=== PATIENT | female | born 1965 | race Caucasian/White ===

== ENCOUNTER → 2017-06-25 | Outpatient (CLI) | payer OTHER ==
[~2017-06-25] MED LIST: ASPI-1064 PO; CYCL10TA29 PO; IBU600 PO; IBUP-1618 PO; IBUP-1671 PO; IBUP800T37 PO; IMITREX; LOR5 PO; MET800 PO; PER PO; RIZA10 PO; SUMA50TA34 PO
--- NOTE | 2017-06-25 17:18 | EKG ---
FACILITY: [facility] - [place] PATIENT NAME: Kylie ROCHA : [id number] MR: [id number] V: [id number] EXAM DATE: ORDERING PHYSICIAN: MIRELLA FIGUEROA TECHNOLOGIST: MONE Messina Reason : CHEST TIGHTNESS Blood Pressure : / mmHG Vent. Rate : 075 BPM Atrial Rate : 075 BPM P-R Int : 138 ms QRS Dur : 082 ms QT Int : 398 ms P-R-T Axes : 064 -19 044 degrees QTc Int : 444 ms Normal sinus rhythm Possible Left atrial enlargement Borderline ECG No previous ECGs available Referred By: CAROLINA Confirmed By:
== END ==
LOC: RESP 17:07
PROVIDERS: ATTEND Family Medicine
DX: R07.9 Chest pain, unspecified (principal); R94.31 Abnormal electrocardiogram [ECG] [EKG]
CPT/HCPCS: 93005

== ENCOUNTER → 2017-06-28 | Outpatient (CLI) | payer OTHER ==
[~2017-06-28] MED LIST changes: +BARIUM SULFATE 176 GM BTL PO ONE; +BARIUM SULFATE 340 GM POWD ONE
--- NOTE | 2017-06-29 08:49 | RADIOLOGY IMAGING REPORT ---
FACILITY: [facility] PATIENT NAME: Kayden Wilkerson : 1965 MR: [id number] V: [id number] EXAM DATE: ORDERING PHYSICIAN: MIRELLA FIGUEROA TECHNOLOGIST: [place] [facility] [place]den Wilk[place] : 1965 Visit/Account:[id number] Date of Sevice: 06/28/2017 Exam type: UPPER GI SERIES W/O AIR History: Epigastric abdomen pain x2 weeks Comparison: None. Findings: Double contrast upper GI series was performed with thick and thin barium. Moderate gastric esophagea l reflux was observed during the examination. There is mild narrowing seen at the lower esophageal s phincter. No mucosal erosions are identified. No abnormality of the stomach duodenal bulb or duoden al C-loop was seen the fluoroscopy dose area product was 569 micro-Herbert per meter squared IMPRESSION: 1. Moderate gastroesophageal reflux with mild narrowing at the lower esophageal sphincter. Given th is finding endoscopy may be helpful Report Dictated By: Codie Aburto MD at 06/29/2017 8:41 AM Report E-Signed By: Codie Aburto MD at 06/29/2017 8:45 AM WSN:[email or web address]
== END ==
LOC: RAD 02:35
PROVIDERS: ATTEND Family Medicine
DX: K21.9 Gastro-esophageal reflux disease without esophagitis (principal); K22.2 Esophageal obstruction
CPT/HCPCS: 74240

== ENCOUNTER → 2017-08-21 | Outpatient (CLI) | payer OTHER ==
[~2017-08-21] MED LIST changes: -BARIUM SULFATE 176 GM BTL PO ONE; -BARIUM SULFATE 340 GM POWD ONE
--- NOTE | 2017-08-23 15:05 | RADIOLOGY IMAGING REPORT ---
FACILITY: [facility] [place] PATIENT NAME: Kayden ROCHA : [id number] MR: [id number] V: [id number] EXAM DATE: [id number] ORDERING PHYSICIAN: MIRELLA FIGUEROA TECHNOLOGIST: Berenice Vallejo PROCEDURE:BILATERAL DIGITAL SCREENING MAMMOGRAM WITH CAD ASSISTED INTERPRETATION & 3D TOMOSYNTHESIS COMPARISON:Prior mammograms 08/09/16, 07/09/15, 07/02/14, 07/02/13, 06/27/13. INDICATIONS:SCREENING FINDINGS: Moderately heterogeneous fibroglandular tissue is seen throughout the breasts. The parenchymal pattern has remained stable allowing for difference in mammographic technique & patient positioning. There is no evidence of malignant appearing mass, malignant appearing calcifications or other secondary sign of malignancy in either breast. DIAGNOSTIC CATEGORY 2--BENIGN FINDING. RECOMMENDATIONS: ROUTINE MAMMOGRAM AND CLINICAL EVALUATION. IMPRESSION: BIRADS 2: Benign finding No significant abnormality is seen. Dictated by: Codie Aburto M.D. on 08/23/2017 at 13:12 Transcribed by: NICOLE on 08/23/2017 at 13:37 Approved by: Codie Aburto M.D. on 08/23/2017 at 15:04 [facility]
== END ==
LOC: MAMO 02:25
PROVIDERS: ATTEND Family Medicine
DX: Z12.31 Encounter for screening mammogram for malignant neoplasm of breast (principal)
CPT/HCPCS: 77063; 77067

== ENCOUNTER → 2017-10-15 | Outpatient (CLI) | payer OTHER ==
--- NOTE | 2017-10-15 17:18 | RADIOLOGY IMAGING REPORT ---
FACILITY: [facility] PATIENT NAME: Kayden Wilkerson : 1965 MR: [id number] V: [id number] EXAM DATE: ORDERING PHYSICIAN: MIRELLA FIGUEROA TECHNOLOGIST: Location: [facility] Patient: Kayden Wilkerson : 1965 Visit/Account:[id number] Date of Sevice: 10/15/2017 THYROID HISTORY: COMPARISON: Studies dating back to 2006 FINDINGS: SIZE: Normal. Right lobe: 3.9 x 1.4 x 1.4 cm Left lobe: 4.2 x 1.6 x 1.7 cm Isthmus: 3 mm PARENCHYMA: Homogeneous. NODULES: Right lobe: * Reidentified and stable in appearance is a isoechoic solid nodule within the posterior aspect of t he mid lobe there is stable in size measuring 1.4 x 0.9 x 0.7 cm. Previously this measured 1.3 x 0.9 x 0.9 cm. Left lobe: * 5 mm solid isoechoic nodule at the superior pole is unchanged. * 1.2 cm peripherally calcified nodule within the mid lobe is slightly decreased in size when compar ed to prior study. * 1.8 cm peripherally calcified solid nodule within the inferior pole is slightly decreased in size Isthmus: * None discrete. VASCULARITY: Within normal limits. ADDITIONAL FINDINGS: None. IMPRESSION: Stable to minimally decreased bilateral thyroid nodules as described. The 1.8 cm nodule within the i nferior left lobe should be considered for biopsy based on size characteristics. REFERENCE: 2015 [place] [employer] Management Guidelines for Adult Patients with Thyroid Nodules and D ifferentiated Thyroid Cancer: The [place] [employer] Guidelines Task Force on Thyroid Nodul es and Differentiated Thyroid Cancer. SONOGRAPHIC PATTERNS: * Benign: Purely cystic nodules (no solid component); estimated risk of malignancy <1 percent; no bi opsy recommended. * Very Low Suspicion: Spongiform or partially cystic nodules without any of the sonographic features described in low, intermediate, or high suspicion patterns; estimated risk of malignancy <3 percent; consider FNA at > 2 cm (Observation without FNA is also a reasonable option). * Low Suspicion: Isoechoic or hyperechoic solid nodule, or partially cystic nodule with eccentric so lid areas, without microcalcification, irregular margin or ETE (extra-thyroidal extension), or taller than wide shape; estimated risk of malignancy 5-10 percent; recommend FNA at >1.5 cm. * Intermediate Suspicion: Hypoechoic solid nodule with smooth margins without microcalcifications, E TE (extra-thyroidal extension), or taller than wide shape; estimated risk of malignancy 10-20 percent ; recommend FNA at > 1 cm. * High Suspicion: Solid hypoechoic nodule or solid hypoechoic component of a partially cystic nodule with one or more of the following features: irregular margins (infiltrative, microlobulated), microc alcifications, taller than wide shape, rim calcifications with small extrusive soft tissue component, evidence of ETE (extra-thyroidal extension); estimated risk of malignancy >70-90 percent; recommend FNA at > 1 cm. NOTES: * Although a sonographically suspicious subcentimeter thyroid nodule without evidence of extrathyroi pham extension or sonographically suspicious lymph nodes may be observed with close sonographic follow -up rather than pursuing immediate FNA, patient age and preference may modify decision-making. * A > 50% interval increase in nodule volume and/or development of new suspicious sonographic featur es are felt to be a valid reasons for potential re-aspiration of a nodule previously shown to have be nign FNA cytology. Report Dictated By: Brandon Johansen at 10/15/2017 5:06 PM Report E-Signed By: Brandon Johansen at 10/15/2017 5:13 PM KESHIAN:JAD
== END ==
LOC: US 03:44
PROVIDERS: ATTEND Family Medicine
DX: E04.9 Nontoxic goiter, unspecified (principal)
CPT/HCPCS: 76536

== ENCOUNTER → 2018-02-15 | Outpatient (CLI) | payer OTHER ==
[~2018-02-15] MED LIST changes: +BARIUM SULFATE 450 ML SUSP ONE; +IOPAMIDOL 76% 75 ML INFUS BTL 75 ML ONE
--- NOTE | 2018-02-15 17:48 | RADIOLOGY IMAGING REPORT ---
[place] [facility] [place]IENT NAME: Kayden Wilkerson : 1965 MR: [id number] V: [id number] EXAM DATE: ORDERING PHYSICIAN: MIRELLA FIGUEROA TECHNOLOGIST: Location: [facility] Patient: Kayden Wilkerson : 1965 Visit/Account:[id number] Date of Sevice: 02/15/2018 ABDOMEN/PELVIS WITH CONTRAST HISTORY: Abdominal pain. Rectal bleeding. Diarrhea TECHNIQUE: Axial images were obtained through the abdomen and pelvis with intravenous contrast . One of the following dose optimization techniques was utilized in the performance of this exam: automate d exposure control; adjustment of the mA and/or kv according to patient size; or use of iterative rec onstruction technique. Specific details can be referenced in the facility's radiology CT exam operati onal policy. CONTRAST: 75 mL of Isovue-370 COMPARISON: None. FINDINGS: Visualized lung bases: Negative. Hepatobiliary: Negative. Spleen: Negative. Adrenals: Negative. Pancreas: Negative. Kidneys/ureters/bladder: 8mm right renal cyst. No hydronephrosis. Bowel/peritoneum/mesentery: No thickened small bowel loops or surrounding edema. Normal appendix. No bowel obstruction, free air or ascites. Vessels: Negative. Lymph nodes: Negative. Pelvic genitourinary: Negative. Bones/body wall: Multiple vertebral body hemangiomas. Sclerotic focus within T8, likely a bone claudette nd. Other findings: None significant IMPRESSION: 1. Unremarkable stomach, small bowel and colon. Report Dictated By: Micheal Castelan MD at 02/15/2018 5:35 PM Report E-Signed By: Micheal Castelan MD at 02/15/2018 5:44 PM WSN:[email or web address]
== END ==
LOC: CT 13:50
PROVIDERS: ATTEND Family Medicine
DX: R10.9 Unspecified abdominal pain (principal); R14.0 Abdominal distension (gaseous); K92.1 Melena; R19.7 Diarrhea, unspecified
CPT/HCPCS: 74177; Q9967

== ENCOUNTER → 2018-08-23 | Outpatient (CLI) | payer OTHER ==
[~2018-08-23] MED LIST changes: -BARIUM SULFATE 450 ML SUSP ONE; -IOPAMIDOL 76% 75 ML INFUS BTL 75 ML ONE
--- NOTE | 2018-08-23 16:37 | RADIOLOGY IMAGING REPORT ---
FACILITY: [facility] PATIENT NAME: Kayden ROCHA : [id number] MR: [id number] V: [id number] EXAM DATE: [id number] ORDERING PHYSICIAN: MIRELLA FIGUEROA TECHNOLOGIST: Alessandra Johnson PROCEDURE:BILATERAL DIGITAL SCREENING MAMMOGRAM WITH CAD ASSISTED INTERPRETATION & 3D TOMOSYNTHESIS COMPARISON:Prior mammograms 08/21/17, priors to 07/02/2014. INDICATIONS:screening FINDINGS: Breast parenchyma is heterogeneously dense. A focal asymmetry with indistinct margins in the posterior lateral Right breast in the 3 o'clock area warrants additional evaluation. There are no mammographic findings of concern on the Left. DIAGNOSTIC CATEGORY 0--INCOMPLETE: NEED ADDITIONAL IMAGING EVALUATION. RECOMMENDATIONS: ADDITIONAL MAMMOGRAPHIC VIEWS REQUIRED: RIGHT BREAST, SPOT COMPRESSION CC & MLO VIEWS WELL A TRUE ML VIEW. ULTRASOUND: RIGHT BREAST IF INDICATED BY ADDITIONAL VIEWS. IMPRESSION BIRADS 0: Incomplete. Dictated by: Sam Mccarthy on 08/23/2018 at 15:47 Transcribed by: NICOLE on 08/23/2018 at 16:23 Approved by: Sam Mccarthy on 08/23/2018 at 16:37 [facility]
== END ==
LOC: MAMO 01:54
PROVIDERS: ATTEND Family Medicine
DX: Z12.31 Encounter for screening mammogram for malignant neoplasm of breast (principal); R92.8 Other abnormal and inconclusive findings on diagnostic imaging of breast
CPT/HCPCS: 77063; 77067

== ENCOUNTER → 2018-09-04 | Outpatient (CLI) | payer OTHER ==
--- NOTE | 2018-09-05 08:42 | RADIOLOGY IMAGING REPORT ---
[facility] PATIENT NAME: Kayden ROCHA : [id number] MR: [id number] V: [id number] EXAM DATE: ORDERING PHYSICIAN: MIRELLA FIGUEROA TECHNOLOGIST: Berenice Vallejo PROCEDURE:RIGHT DIGITAL DIAGNOSTIC MAMMOGRAM WITH CAD ASSISTED INTERPRETATION & 3D TOMOSYNTHESIS COMPARISON:Prior mammograms dated 08/23/18, 08/21/17, 08/09/16, 07/09/15, 07/02/14, 07/02/13 INDICATIONS:further eval FINDINGS: Patient returns for a full field mediolateral view of the Right breast & spot compression views in the Right CC & MLO projections. The previously noted asymmetry in the 3 o'clock position of the Right breast appeared compressible & apparently represented a summation shadow. DIAGNOSTIC CATEGORY 1--NEGATIVE. RECOMMENDATIONS: ROUTINE MAMMOGRAM AND CLINICAL EVALUATION. IMPRESSION: BIRADS 1: Negative. No significant abnormality of the Right breast is seen. Dictated by: Codie Aburto M.D. on 09/04/2018 at 16:05 Transcribed by: JAVAD on 09/05/2018 at 8:02 Approved by: Codie Aburto M.D. on 09/05/2018 at 8:41 [facility]
== END ==
LOC: MAMO 00:30
PROVIDERS: ATTEND Family Medicine
DX: Z12.31 Encounter for screening mammogram for malignant neoplasm of breast (principal)
CPT/HCPCS: 77061; 77065

== ENCOUNTER → 2018-10-15 | Outpatient (CLI) | payer OTHER ==
--- NOTE | 2018-10-15 14:16 | RADIOLOGY IMAGING REPORT ---
FACILITY: [facility] PATIENT NAME: Kayden Wilkerson : 1965 MR: [id number] V: [id number] EXAM DATE: ORDERING PHYSICIAN: MIRELLA FIGUEROA TECHNOLOGIST: Location: [facility] Patient: Kayden Wilkerson : 1965 Visit/Account:[id number] Date of Sevice: 10/15/2018 THYROID HISTORY: History of thyroid nodules COMPARISON: October 15, 2017 FINDINGS: SIZE: Normal. Right lobe: 4.3 x 1.5 x 1.3 cm Left lobe: 4.8 x 1.5 x 1.7 cm Isthmus: 3 mm PARENCHYMA: Homogeneous. NODULES: Right lobe: * There is a solid well-circumscribed hypoechoic nodule in the mid to inferior right lobe measuring 1.4 x 0.9 x 0.9 cm and appears relatively unchanged. Left lobe: * 6 mm ovoid hypoechoic nodule in the superior pole is relatively unchanged. * 9 mm peripherally calcified nodule in the mid left lobe is decreased in size from 1.2 cm. In the inferior left lobe there is a 2.1 cm partially calcified nodule which is increased in size from 1.8 c m previously. Isthmus: * None discrete. VASCULARITY: Within normal limits. ADDITIONAL FINDINGS: None. IMPRESSION: There is a 2.1 cm partially calcified nodule in the inferior left lobe which is increased in size. U ltrasound-guided fine-needle aspiration is recommended REFERENCE: 2015 [place] [employer] Management Guidelines for Adult Patients with Thyroid Nodules and D ifferentiated Thyroid Cancer: The [place] [employer] Guidelines Task Force on Thyroid Nodul es and Differentiated Thyroid Cancer. SONOGRAPHIC PATTERNS: * Benign: Purely cystic nodules (no solid component); estimated risk of malignancy <1 percent; no bi opsy recommended. * Very Low Suspicion: Spongiform or partially cystic nodules without any of the sonographic features described in low, intermediate, or high suspicion patterns; estimated risk of malignancy <3 percent; consider FNA at > 2 cm (Observation without FNA is also a reasonable option). * Low Suspicion: Isoechoic or hyperechoic solid nodule, or partially cystic nodule with eccentric so lid areas, without microcalcification, irregular margin or ETE (extra-thyroidal extension), or taller than wide shape; estimated risk of malignancy 5-10 percent; recommend FNA at >1.5 cm. * Intermediate Suspicion: Hypoechoic solid nodule with smooth margins without microcalcifications, E TE (extra-thyroidal extension), or taller than wide shape; estimated risk of malignancy 10-20 percent ; recommend FNA at > 1 cm. * High Suspicion: Solid hypoechoic nodule or solid hypoechoic component of a partially cystic nodule with one or more of the following features: irregular margins (infiltrative, microlobulated), microc alcifications, taller than wide shape, rim calcifications with small extrusive soft tissue component, evidence of ETE (extra-thyroidal extension); estimated risk of malignancy >70-90 percent; recommend FNA at > 1 cm. NOTES: * Although a sonographically suspicious subcentimeter thyroid nodule without evidence of extrathyroi pham extension or sonographically suspicious lymph nodes may be observed with close sonographic follow -up rather than pursuing immediate FNA, patient age and preference may modify decision-making. A > 50% interval increase in nodule volume and/or development of new suspicious sonographic features are felt to be a valid reasons for potential re-aspiration of a nodule previously shown to have benig n FNA cytology. Report Dictated By: Codie Aburto MD at 10/15/2018 1:46 PM Report E-Signed By: Codie Aburto MD at 10/15/2018 2:11 PM WSN:[email or web address]
== END ==
LOC: US 00:55
PROVIDERS: ATTEND Family Medicine
DX: E04.1 Nontoxic single thyroid nodule (principal)
CPT/HCPCS: 76536